=== PATIENT | male | born 1995 ===

== ENCOUNTER 2018-02-09 17:14 | Emergency (ER) | payer OTHER ==
[2018-02-09 17:32] VITALS: BP 143/88
--- NOTE | 2018-02-09 18:01 | RAD ---
Indication: Left ankle pain. 3 views of left ankle demonstrates no definite fracture. No evidence of soft tissue swelling is noted. IMPRESSION: No fracture of the ankle is noted.
--- NOTE | 2018-02-09 18:02 | RAD ---
Dictation: Left foot pain, left foot injury. 3 views of left foot demonstrates no fracture. No other bone or joint abnormality is noted. IMPRESSION: No fracture of the left foot is noted.
--- NOTE | 2018-02-09 18:22 | UC ---
Lower Extremity/Ankle HPI - HPI Summary HPI Summary: 22 yo WM c/o left achilles heel tendon pain after "rolling his ankle" one month ago, took 2 weeks off then started running again but feels small amount of pain when running - History of Current Complaint Chief Complaint: UCLowerExtremity Stated Complaint: ANKLE INJURY Time Seen by Provider: 02/09/18 17:16 Hx Obtained From: Patient Hx From Patient Unobtainable Due To: Other Onset/Duration: Lasting Weeks Severity Initially: Moderate Severity Currently: Moderate Pain Intensity: 0 Aggravating Factor(s): Nothing - Allergies/Home Medications Allergies/Adverse Reactions: Allergies Allergy/AdvReac Type Severity Reaction Status Date / Time No Known Allergies Allergy Verified 02/09/18 17:26 Home Medications: Home Medications Escitalopram (NF) [Lexapro 5 mg (NF)] 5 mg PO DAILY 02/09/18 [History Confirmed 02/09/18] Finasteride TAB* [Proscar TAB*] 5 mg PO DAILY 02/09/18 [History Confirmed ] PMH/Surg Hx/FS Hx/Imm Hx - Surgical History Surgical History: Yes Surgery Procedure, Year, and Place: kathy removal. Nasal surgery d/t fracture. R leg surgery. Tongue surgery - Social History Alcohol Use: Occasionally Substance Use Type: None Smoking Status (MU): Never Smoked Tobacco Review of Systems Constitutional: Negative Skin: Negative Eyes: Negative ENT: Negative Respiratory: Negative Cardiovascular: Negative Gastrointestinal: Negative Genitourinary: Negative Motor: Negative Neurovascular: Negative Musculoskeletal: Other: - left Neurological: Negative Psychological: Negative All Other Systems Reviewed And Are Negative: Yes Physical Exam Triage Information Reviewed: Yes Appearance: Well-Appearing Vital Signs: Initial Vital Signs Temp 36.8 C 02/09/18 17:27 Pulse 72 02/09/18 17:27 Resp 18 02/09/18 17:27 BP 143/88 02/09/18 17:27 Pulse Ox 98 02/09/18 17:27 Vital Signs Reviewed: Yes Eye Exam: Other ENT: Positive: Normal ENT inspection Dental Exam: Normal Neck exam: Normal Neck: Positive: Supple Respiratory Exam: Normal Respiratory: Positive: Lungs clear Cardiovascular Exam: Normal Abdominal Exam: Normal Musculoskeletal: Positive: Other: - mild TTP over left achilles tendon Neurological Exam: Normal Psychological Exam: Normal Lower Extremity Course/Dx - Course Course Of Treatment: XR of left ankle anf foot neg for fx, if pain persists then go to PCP and request MRI to examine achilles tendon - Differential Dx/Diagnosis Provider Diagnoses: achilles tendonitis Discharge - Sign-Out/Discharge Documenting (check all that apply): Discharge/Admit/Transfer - Discharge Plan Condition: Stable Disposition: HOME Patient Education Materials: Achilles Tendinitis (ED) Referrals: No Primary Care Phys,NOPCP [Primary Care Provider] - Additional Instructions: follow up with PCP for MRI referral - Billing Disposition and Condition Condition: STABLE Disposition: HOME
== END 2018-02-09 18:15 | disposition home or self-care (01) ==
LOC: UCEAST 17:14
DX: M76.62 Achilles tendinitis, left leg (principal)
CPT/HCPCS: 99201; G0463